=== PATIENT | male | born 1995 | race Caucasian/White ===

== ENCOUNTER 2018-12-11 23:01 | Emergency (ER) | payer OTHER ==
[~2018-12-11] VITALS: Ht 177.8 cm; Wt 89.0 kg
[2018-12-11 23:12] VITALS: BP 141/88
--- NOTE | 2018-12-11 23:17 | NUR ---
PT AWAITING ERP ORDERS.
== END 2018-12-12 | disposition home or self-care (01) ==
LOC: ED 23:54
DX: S50.811A Abrasion of right forearm, initial encounter (principal); S50.812A Abrasion of left forearm, initial encounter; F32.9 Major depressive disorder, single episode, unspecified; X78.8XXA Intentional self-harm by other sharp object, initial encounter; Y93.89 Activity, other specified; Y92.89 Other specified places as the place of occurrence of the external cause; Y99.8 Other external cause status
CPT/HCPCS: 99283; 99284

== ENCOUNTER 2019-01-05 14:49 | Emergency (ER) | payer OTHER ==
[~2019-01-05] VITALS: Ht 180.3 cm; Wt 90.0 kg
[2019-01-05 14:52] VITALS: BP 138/81
--- NOTE | 2019-01-05 15:07 | NUR ---
PT TAKEN TO RAD, ICE PACK PROVIDED
--- NOTE | 2019-01-05 15:44 | NUR ---
YUDELKA WRAP APPLIED, [facility] INTACT. Patient/Caregiver given discharge instructions and they have confirmed that they understand the instructions. Patient ambulatory with steady gait.
== END 2019-01-05 15:46 | disposition home or self-care (01) ==
LOC: ED 15:34
DX: M25.462 Effusion, left knee (principal); F32.9 Major depressive disorder, single episode, unspecified; V88.8XXA Person injured in other specified noncollision transport accidents involving motor vehicle, nontraffic, initial encounter; Y93.51 Activity, roller skating (inline) and skateboarding; Y92.488 Other paved roadways as the place of occurrence of the external cause; Y99.8 Other external cause status
CPT/HCPCS: 99283